=== PATIENT | female | born 1975 | race Caucasian/White ===

== ENCOUNTER 2020-03-21 19:56 | Inpatient (IN) | payer SELFPAY ==
[2020-03-21 20:08] VITALS: BP 157/91; PULSE 85; RESP 96; TEMP 38.5; O2SAT 97; BMI 21.2
[2020-03-21 20:33] VITALS: BP 174/97; PULSE 78; RESP 16; TEMP 39.3; O2SAT 97
--- NOTE | 2020-03-21 20:33 | XR_ITS ---
WS: [id number] XR chest 1V portable [id number] REASON FOR EXAM: fever FINDINGS: The heart and mediastinum are within normal limits. No active pulmonary parenchymal pleural disease is noted. Bony thorax is intact. XR/XR chest 1V portable [id number] IMPRESSION: No acute chest abnormality.
--- NOTE | 2020-03-21 20:34 | ECG_ITS ---
[facility] Test Date: 2020-03-21 Pat Name: Yoly Matthews Department: Room: Gender: Female Materials Mgmt Tech: : 1975 Requested By: Arnaldo Huerta Order Number: [id number] Reading MD: ALESSIA MCGOVERN Measurements Intervals [place] Rate: 76 P: 61 TN: 128 QRS: 63 QRSD: 90 T: 79 QT: 449 QTc: 507 Interpretive Statements SINUS RHYTHM MINIMAL ST DEPRESSION [0.025+ mV ST DEPRESSION] PROLONGED QT INTERVAL No previous ECG available for comparison Electronically Signed On 03-22-2020 19:29:22 CRACKER SPRAYER by ALESSIA MCGOVERN [id number]
--- NOTE | 2020-03-21 20:44 | ED_ITS ---
HPI - General Adult General: Chief complaint: General Medical Stated complaint: no thyroid meds/lethargic Time Seen by Provider: 03/21/20 20:26 Source: patient Mode of arrival: ambulatory Limitations: no limitations History of Present Illness: HPI narrative: 45-year-old female that states she been having generalized weakness along with fever. States she been having weakness for over a year with a being much worse recently. Patient states she has Tano's and has not taken her thyroid medicine in over a year. Patient's temperature here is 101. She denies any cough. Denies any sick contacts. Denies any worsening or improving factors. Denies any vomiting or diarrhea. Associated symptoms: Deny chest pain, dyspnea, headache(s), nausea, rash or vomiting Review of Systems Const: Reports: fever(s); Denies: chills, body aches or change in appetite Eyes: Denies: blurry vision or eye discomfort ENMT: Denies: throat pain or dental pain Card: Denies: chest pain Resp: Denies: dyspnea GI: Denies: abdominal pain, nausea, vomiting or diarrhea : Denies: dysuria Musc: Denies: neck pain or back pain Skin/Breast: Denies: rash Neuro: Reports: weakness in extremities; Denies: headache(s) Psych: Denies: depression Clive/Lymph: Denies: easy bruising All/Imm: Denies: urticaria [facility] Female Reproductive History: Date of last menstrual period: 03/21/20 Physical Exam Const: COMMON NORMALS: no acute distress, patient oriented x3 and healthy appearing HENMT: COMMON NORMALS: normocephalic and atraumatic HEAD & SCALP: normocephalic and atraumatic Eye: COMMON NORMALS: Equal, round and reactive pupils present and EOMs intact bilaterally PUPIL: Yes Equal, round and reactive pupils present Neck/C-Spine: COMMON NORMALS: full ROM and supple Chest: COMMONS NORMALS: normal inspection of the chest and normal palpation of entire chest wall Resp: COMMON NORMALS: normal respiratory effort, No retractions, No use of accessory muscles and clear to auscultation bilaterally AUSCULTATION: clear to auscultation bilaterally Cardio: COMMON NORMALS: regular rate, regular rhythm and No murmurs present (Cardio) RATE: regular rate RHYTHM: regular rhythm GI: COMMON NORMALS: Normal to inspection, nondistended, normoactive bowel sounds present, Soft to palpation, non-tender and no masses PALPATION: Yes Soft to palpation Extremity: COMMON NORMALS: normal to inspection and full ROM Neuro: COMMON NORMALS: patient oriented x3, moves all extremities and no focal motor deficits Psych: COMMON NORMALS: mental status grossly normal, Normal thought process present and cooperative THOUGHT PROCESS: Normal thought process present Skin: COMMON NORMALS: no rashes or lesions noted and no wounds GENERAL SKIN EXAM: no rashes or lesions noted Course Vital Signs: Vital signs: Vital Signs Temperature 102.7 F H 03/21/20 20:33 Pulse Rate 68 03/21/20 22:28 Respiratory Rate 16 03/21/20 22:28 Blood Pressure 128/72 03/21/20 22:28 Pulse Oximetry 97 03/21/20 22:28 MDM - General Adult MDM Narrative: Medical decision making narrative: Patient presents here with weakness likely due to her hypothyroidism. Her TSH is quite elevated in the 300s. She has been noncompliant with her Synthroid. Patient also has a fever here. Infectious source has not been noted. We will get blood cultures and follow. Her white count here is normal and her vital signs of been normal as well. She is Covid screen was negative. Spoke to hospitalist and will admit at this time. Patient has been stable while here. Lab Data: Labs: Lab Results 03/21/20 03/21/20 03/21/20 Range/Units 20:55 20:55 20:55 WBC 7.8 (4.0-10.0) 10^3/ uL RBC 4.34 (4.1-5.3) 10^6/u L Hgb 12.1 (11.5-15.3) g/dL Hct 38.6 (37.0-47.0) % MCV 88.9 (81-99) fL MCH 27.9 L (28.0-34.0) pg MCHC 31.3 (30.0-36.0) g/dL RDW 18.4 H (12.1-15.1) % Plt Count 220 (130-400) 10^3/c mm MPV 10.5 H (7.4-10.4) fL Neut % (Auto) 85.5 % Lymph % (Auto) 6.6 % [place] % (Auto) 6.0 % Eos % (Auto) 1.0 % Baso % (Auto) 0.3 % Neut # (Auto) 6.68 (1.8-7.7) 10^3/u L Lymph # (Auto) 0.5 L (0.8-4.8) 10^3/u L [place] # (Auto) 0.5 (0.2-0.9) 10^3/u L Eos # (Auto) 0.1 (0.0-0.8) 10^3/u L Baso # (Auto) 0.0 (0.0-0.1) 10^3/u L Nucleated RBC % (a uto) 0 % Nucleated RBCs # 0.0 /100WBC Sodium 135 L (136-145) mmol/L Potassium 2.8 L* (3.5-5.1) mmol/L Chloride 97 L (98-107) mmol/L Carbon Dioxide 28 (22-29) mmol/L Anion Gap 12.8 (5-19) BUN 6 (6-20) mg/dL Creatinine 1.4 H (0.5-0.9) mg/dL GFR Calculation 40.5 L (90-130) mL/min Glucose 102 (65-115) mg/dL Calculated Osmolal ity 278 L (285-295) mOsm/k g Lactate 1.6 (0.5-2.2) mmol/L Calcium 8.9 (8.5-10.5) mg/dL Total Bilirubin 0.3 (0.15-1.2) mg/dL AST 53 H (0-32) U/L ALT 30 (0-33) U/L Alkaline Phosphata se 100 (35-105) IU/L Total Protein 7.3 (6.6-8.7) g/dL Albumin 4.5 (3.5-5.2) g/dL Globulin 2.8 (1.3-4.6) g/dL TSH 356.10 H (0.27-4.20) uIU/ mL Free T4 0.10 L (0.82-1.77) ng/d L SARS-CoV-2 Ag (Rap id) (Negative) 03/21/20 Range/Units 21:30 WBC (4.0-10.0) 10^3/ uL RBC (4.1-5.3) 10^6/u L Hgb (11.5-15.3) g/dL Hct (37.0-47.0) % MCV (81-99) fL MCH (28.0-34.0) pg MCHC (30.0-36.0) g/dL RDW (12.1-15.1) % Plt Count (130-400) 10^3/c mm MPV (7.4-10.4) fL Neut % (Auto) % Lymph % (Auto) % [place] % (Auto) % Eos % (Auto) % Baso % (Auto) % Neut # (Auto) (1.8-7.7) 10^3/u L Lymph # (Auto) (0.8-4.8) 10^3/u L [place] # (Auto) (0.2-0.9) 10^3/u L Eos # (Auto) (0.0-0.8) 10^3/u L Baso # (Auto) (0.0-0.1) 10^3/u L Nucleated RBC % (a uto) % Nucleated RBCs # /100WBC Sodium (136-145) mmol/L Potassium (3.5-5.1) mmol/L Chloride (98-107) mmol/L Carbon Dioxide (22-29) mmol/L Anion Gap (5-19) BUN (6-20) mg/dL Creatinine (0.5-0.9) mg/dL GFR Calculation (90-130) mL/min Glucose (65-115) mg/dL Calculated Osmolal ity (285-295) mOsm/k g Lactate (0.5-2.2) mmol/L Calcium (8.5-10.5) mg/dL Total Bilirubin (0.15-1.2) mg/dL AST (0-32) U/L ALT (0-33) U/L Alkaline Phosphata se (35-105) IU/L Total Protein (6.6-8.7) g/dL Albumin (3.5-5.2) g/dL Globulin (1.3-4.6) g/dL TSH (0.27-4.20) uIU/ mL Free T4 (0.82-1.77) ng/d L SARS-CoV-2 Ag (Rap id) Negative (Negative) Imaging Data^: CXR: Attestation: I personally reviewed and interpreted this imaging study as follows: My impression: no acute abnormality EKG Data^: EKG 1: Attestation: I personally reviewed and interpreted this EKG as follows: EKG interpretation date: 03/21/20 EKG interpretation time: 20:45 Interpretation: nsr hr [address] or t wave abnormalities qrs 90 qtc 480 Discharge Plan Discharge Patient Disposition: Admitted As Inpatient Clinical Impression: Hypokalemia Hypothyroidism Qualifiers: 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
[2020-03-21 21:00] VITALS: BP 135/72; PULSE 68; RESP 18; O2SAT 96
[2020-03-21] MEDS: acetaminophen 325 mg Tablet 1000 MG PO (21:06)
[2020-03-21] MEDS: sodium chloride 0.9% 1,000 ML 999 ML IV (21:08)
[2020-03-21 21:17] LABS: Basophils % 0.3 %; Eosinophils # 0.1 10^3/uL (0.0-0.8); Hematocrit 38.6 % (37.0-47.0); Hemoglobin 12.1 g/dL (11.5-15.3); Lymphocytes # 0.5 10^3/uL (0.8-4.8); Lymphocytes % 6.6 %; Mean Corpuscular HGB Conc 31.3 g/dL (30.0-36.0); Mean Corpuscular Hemoglobin 27.9 pg (28.0-34.0); Mean Corpuscular Volume 88.9 fL (81-99); Mean Platelet Volume 10.5 fL (7.4-10.4); Monocytes # 0.5 10^3/uL (0.2-0.9); Neutrophils # 6.68 10^3/uL (1.8-7.7); Neutrophils % 85.5 %; Nucleated Red Blood Cells % 0 %; Platelet Count 220 10^3/cmm (130-400); Red Blood Count 4.34 10^6/uL (4.1-5.3); Red Cell Distribution Width 18.4 % (12.1-15.1); White Blood Count 7.8 10^3/uL (4.0-10.0)
[2020-03-21 21:35] LABS: Lactate (Lactic Acid level) 1.6 mmol/L (0.5-2.2)
[2020-03-21 21:46] LABS: Alanine Aminotransferase 30 U/L (0-33); Albumin Level 4.5 g/dL (3.5-5.2); Alkaline Phosphatase 100 IU/L (35-105); Anion Gap 12.8 (5-19); Aspartate Amino Transferase 53 U/L (0-32); Blood Urea Nitrogen 6 mg/dL (6-20); Calcium 8.9 mg/dL (8.5-10.5); Carbon Dioxide 28 mmol/L (22-29); Chloride 97 mmol/L (98-107); Globulin 2.8 g/dL (1.3-4.6); Glomerular Filtration Rate 40.5 mL/min (90-130); Glucose 102 mg/dL (65-115); Osmolality Calculated 278 mOsm/kg (285-295); Sodium 135 mmol/L (136-145); Total Bilirubin 0.3 mg/dL (0.15-1.2); Total Protein 7.3 g/dL (6.6-8.7)
[2020-03-21 21:49] LABS: Potassium 2.8 mmol/L (3.5-5.1)
[2020-03-21 22:28] VITALS: BP 128/72; PULSE 68; RESP 16; O2SAT 97
[2020-03-21] MEDS: potassium chloride ER 10 mEq Tablet 40 MEQ PO (22:33)
[2020-03-21 22:39] LABS: SARS Covid-2 Antigen Negative (Negative)
[2020-03-21 23:00] VITALS: BP 132/89; PULSE 66; RESP 16; O2SAT 98
[2020-03-21 23:14] LABS: Magnesium 2.1 mg/dL (1.7-2.3)
[2020-03-21 23:18] LABS: Creatine Phosphokinase 1702 U/L (26-192)
[2020-03-21 23:21] LABS: Add Urine Microscopic? YES; Bilirubin Urine Neg (Negative); Blood Urine 3+ (Negative); Glucose Urine UA Norm (Normal); Ketones Urine Negative (Negative); Leukocyte Esterase Urine Negative (Negative); Nitrate Urine Negative (Negative); Protein Urine Neg (Negative); Specific Gravity, Urine 1.005 (1.005-1.030); Urine Appearance Clear (CLEAR); Urine Color Yellow (Yellow); Urobilinogen Urine Norm (Negative); pH Urine 7 (5-7)
--- NOTE | 2020-03-21 23:43 | P.HP_ITS ---
Providers/Chief Complaint Chief Complaint: no thyroid meds/lethargic History of Present Illness Yoly Matthews is a 45 year old female with a past medical history of Tano's, has not taken her levothyroxine in over a year due to affordability and loss of availability of natural levothyroxine, no other significant medical history, who presents [facility] due to complaints of fatigue, malaise, right flank pain, fevers. Patient tells me that she has a history of Tano thyroiditis, she prefers natural supplementations, was on a natural formulation of levothyroxine, but due to affordability's and loss of availability, has not taken this medication for over a year. She has been complaining of weakness, fatigue,'s swelling, skin changes, constipation. No chest pain, no shortness of breath, is alert oriented x3, no headaches, no blurry vision, no lightheadedness, no dizziness. She also has been complaining of fevers, mild nausea, right flank pain, she thinks she has a urinary tract infection. Review of Systems Const: Reports: fever(s), fatigue and malaise; Denies: chills Eyes: Denies: change in vision or blurry vision ENMT: Denies: nasal congestion Card: Reports: edema; Denies: chest pain, palpitations or pre-syncope Resp: Denies: dyspnea, productive cough, non-productive cough or wheezing GI: Denies: abdominal pain, nausea, vomiting, hematemesis, diarrhea, constipation, hematochezia or melena : Denies: flank pain, dysuria or urinary frequency Musc: Denies: neck pain or back pain Skin/Breast: Reports: rash Neuro: Denies: headache(s), dizziness or vertigo Psych: Denies: anxiety or depression Endo: Denies: polyuria or polydipsia Medications/Allergies Home Medications Medication Instructions Recorded Confirmed Last Taken Type No Known Home Medications 03/21/20 03/21/20 Unknown History Allergies Allergy/AdvReac Type Severity Reaction Status Date / Time citalopram [From Celexa] Allergy ALGY-Rash Verified 03/21/20 20:18 Additional Medication Information Natural Synthyroid, patient unsure of the dose PFSH Acute PFSH: Medical History (Updated 03/21/20 @ 23:58 by Mitch Stone MD) History of hypothyroidism Surgical History (Updated 03/21/20 @ 23:46 by Mitch Stone MD) No pertinent past surgical history Family History (Updated 03/21/20 @ 23:46 by Mitch Stone MD) Other CAD (coronary artery disease) Social History (Updated 03/21/20 @ 23:47 by Mitch Stone MD) Smoking and tobacco status: current some day smoker Alcohol intake: never Substance/Drug Use: never Female Reproductive History: Date of last menstrual period: 03/21/20 Vitals/I&O/Wt Last Vital Signs Temp 102.7 F H 03/21/20 20:33 Pulse 68 03/21/20 22:28 Resp 16 03/21/20 22:28 BP 128/72 03/21/20 22:28 Pulse Ox 97 03/21/20 22:28 Weight last 48 hrs Weight 63.503 kg Physical Exam Const: COMMON NORMALS: no acute distress and patient oriented x3 GENERAL APPEARANCE: cooperative and comfortable HENMT: COMMON NORMALS: normocephalic HEAD & SCALP: normocephalic Eye: COMMON NORMALS: Equal, round and reactive pupils present and EOMs intact bilaterally PUPIL: Yes Equal, round and reactive pupils present OTHER: Has periorbital edema Neck/C-Spine: COMMON NORMALS: full ROM, no lymphadenopathy, no JVD and Thyroid normal THYROID: Thyroid normal Lymph: LYMPHATIC: no lymphadenopathy noted Resp: COMMON NORMALS: normal respiratory effort, No retractions, No use of accessory muscles and clear to auscultation bilaterally AUSCULTATION: clear to auscultation bilaterally Cardio: COMMON NORMALS: no JVD, regular rate, regular rhythm, S1 normal heart sound present, S2 normal heart sound present, No gallops present (Cardio), No clicks present (Cardio) and No murmurs present (Cardio) RATE: regular rate RHYTHM: regular rhythm HEART SOUNDS: S1 normal heart sound present and S2 normal heart sound present GI: COMMON NORMALS: Normal to inspection, nondistended, normoactive bowel sounds present, Soft to palpation, non-tender and No hepatosplenomegaly present PALPATION: Yes Soft to palpation and Yes No hepatosplenomegaly present Back/Pelvis: GENERAL BACK: Yes CVA tenderness CVA tenderness: right Extremity: COMMON NORMALS: normal to inspection, full ROM and no pedal edema Neuro: COMMON NORMALS: patient oriented x3, CN's II-XII intact bilaterally, moves all extremities and no focal motor deficits Psych: COMMON NORMALS: mental status grossly normal, Normal thought process present and cooperative THOUGHT PROCESS: Normal thought process present Data : 03/21/20 20:55 03/21/20 20:55 Micro: Microbiology 03/21/20 20:55 Blood Culture - Preliminary Blood SPECIMEN COLLECTED 03/21/20 20:55 Blood Culture - Preliminary Blood SPECIMEN COLLECTED A&P Assessment and plan (1) Pyelonephritis of right kidney: Fevers, right flank pain, highly suspicious of right pyelonephritis of the kidney, tells me that she has recurrent UTIs and history is a pyelonephritis -Rapid Covid negative -Order CT scan of the abdomen pelvis to rule out obstructive uropathy -Start Zosyn -Follow blood cultures Status: Acute (2) Hypokalemia: -Received replacement, monitor levels Status: Acute (3) Fever: Status: Acute Qualifiers: Fever type: unspecified Qualified Code(s): R50.9 - Fever, unspecified (4) Hypothyroidism: Status: Acute Qualifiers: 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 Qualified Code(s): E03.8 - Other specified hypothyroidism; E06.3 - Autoimmune thyroiditis (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 daily -Daily TSH, free T3, free T4 -Telemetry monitoring -Monitor CK, creatinine, potassium, EKG Status: Acute (6) BONNIE (acute kidney injury): -Creatinine 1.4, will start IV hydration Status: Acute (7) QT prolongation: 507 ms, potassium low at 2.8, repleted, magnesium within normal limits, likely associated with myxedema coma, daily EKGs, monitor QT Status: Acute (8) Rhabdomyolysis: -1702, CPK, likely secondary to myxedema, monitor levels IV hydration, monitor creatinine, monitor urine output Status: Acute Attestations Medical Necessity Statement*: Patient requires hospitalization, inpatient, greater than 2 midnights for pyelonephritis right kidney, myxedema coma Coding Level of Care Code Acute Machine Operator Cane Cutter for g Fwd Diagnoses Pyelonephritis of right kidney N12 Hypokalemia E87.6 Fever R50.9 Fever type: unspecified Hypothyroidism E03.8; E06.3 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
[2020-03-21 23:54] LABS: Add Urine Culture? No; Bacteria Urine TRACE /hpf; RBC Urine 0-4 /hpf (0-2); Squamous Epithelial Cell Urine 0-4 /hpf (0-5)
[2020-03-22] VITALS (7 sets, daily range): BP systolic 120–162; BP diastolic 72–86; PULSE 59–94; RESP 16–18; TEMP 37.2–39.4; O2SAT 96–99
[2020-03-22 00:22] LABS: C Reactive Protein 7.3 mg/L (0.0-4.9)
[2020-03-22 00:31] LABS: HCG Qualitative Urine. Negative (Negative)
[2020-03-22] MEDS: levothyroxine 100 mcg SDV 150 MCG IVP (00:52)
[2020-03-22 02:08] LABS: Influenza A by IFA Negative (Negative); Influenza B by IFA Negative (Negative)
[2020-03-22] MEDS: piperacillin-tazobactam 3.375 GM in sodium chloride 0.9% (plus) 50 ML IV ×2 (03:33→11:38)
[2020-03-22] MEDS: sodium chloride 0.9% 1,000 ML 100 ML IV (03:33)
[2020-03-22] MEDS: liothyronine 5 mcg Tablet PO (03:34)
[2020-03-22] MEDS: enoxaparin 40 mg/0.4 mL Syringe SUBCUT (03:36)
[2020-03-22 03:53] LABS: Basophils % 0.3 %; Eosinophils % 0.2 %; Hematocrit 42.8 % (37.0-47.0); Hemoglobin 13.7 g/dL (11.5-15.3); Lymphocytes # 0.7 10^3/uL (0.8-4.8); Lymphocytes % 7.3 %; Mean Corpuscular Hemoglobin 27.8 pg (28.0-34.0); Mean Platelet Volume 10.1 fL (7.4-10.4); Monocytes # 0.4 10^3/uL (0.2-0.9); Monocytes % 3.8 %; Neutrophils % 87.9 %; Nucleated Red Blood Cells % 0 %; Platelet Count 225 10^3/cmm (130-400); Red Blood Count 4.92 10^6/uL (4.1-5.3); Red Cell Distribution Width 18.3 % (12.1-15.1); White Blood Count 9.7 10^3/uL (4.0-10.0)
[2020-03-22 04:17] LABS: Lactic Sepsis W/Reflex 1.4 mmol/L (0.5-2.2)
[2020-03-22 04:18] LABS: Alanine Aminotransferase 36 U/L (0-33); Albumin Level 4.4 g/dL (3.5-5.2); Alkaline Phosphatase 111 IU/L (35-105); Anion Gap 13.4 (5-19); Aspartate Amino Transferase 61 U/L (0-32); Blood Urea Nitrogen 6 mg/dL (6-20); Calcium 8.8 mg/dL (8.5-10.5); Carbon Dioxide 26 mmol/L (22-29); Chloride 104 mmol/L (98-107); Glomerular Filtration Rate 48.4 mL/min (90-130); Glucose 112 mg/dL (65-115); Magnesium 2.3 mg/dL (1.7-2.3); Osmolality Calculated 288 mOsm/kg (285-295); Potassium 3.4 mmol/L (3.5-5.1); Sodium 140 mmol/L (136-145); Total Bilirubin 0.4 mg/dL (0.15-1.2); Total Protein 7.4 g/dL (6.6-8.7)
[2020-03-22 04:19] LABS: INR 0.95 (0.8-1.2); Phosphorus 2.7 mg/dL (2.5-4.5)
[2020-03-22 04:25] LABS: T3 Free 0.4 PG/ML (2.0-4.4)
[2020-03-22 04:26] LABS: Cortisol Random 18.66 ug/mL (2.47-19.5)
[2020-03-22 05:15] LABS: Creatine Phosphokinase 1506 U/L (26-192)
[2020-03-22] MEDS: pantoprazole DR 40 mg Tablet PO (08:30)
[2020-03-22] MEDS: acetaminophen 325 mg Tablet 650 MG PO (13:41)
[2020-03-22 14:27] LABS: Erythrocyte Sedimentation Rate 17 mm/hr (0-15)
--- NOTE | 2020-03-22 15:37 | PC.RESP ---
Smoking Cessation information sent to patient.
--- NOTE | 2020-03-22 15:51 | PM.PN ---
Subjective Subjective: Interval history: Overnight labs and H&P reviewed. Continues to be febrile to 102.9 Fahrenheit. States that her back pain and abdominal pain is much improved at this time. Given additional dose of 100 mg of IV levothyroxine today. Medications: Reviewed: Yes Vitals/I&O/Wt Last Vital Signs Temp 102.9 F H 03/22/20 12:00 Pulse 78 03/22/20 12:00 Resp 18 03/22/20 12:00 BP 162/78 03/22/20 12:00 Pulse Ox 96 03/22/20 12:00 03/22/20 03/22/20 03/22/20 06:59 14:59 22:59 Intake Total 630 / 630 Output Total 600 / 600 Balance Weight last 48 hrs Weight 63.503 kg Physical Exam Narrative: EXAM NARRATIVE: GEN: Awake, alert and oriented, no acute distress CVS: S1S2 N RS: CTA B/L Abd: Soft, nt/nd , bs+ FACILITIES MAINTENANCE ASSISTANT: no focal neuro deficits Data : 03/22/20 03:35 03/22/20 03:35 Micro: Microbiology 03/22/20 03:30 Blood Culture - Preliminary Blood SPECIMEN COLLECTED 03/22/20 03:30 Blood Culture - Preliminary Blood SPECIMEN COLLECTED 03/21/20 20:55 Blood Culture - Preliminary Blood SPECIMEN COLLECTED 03/21/20 20:55 Blood Culture - Preliminary Blood SPECIMEN COLLECTED A&P Assessment and plan (1) Pyelonephritis of right kidney: Fevers, right flank pain, highly suspicious of right pyelonephritis of the kidney CT of the abdomen pelvis ordered as an urgent study overnight however this has not been performed yet -Rapid Covid negative -Continue Zosyn empirically -Follow blood cultures, negative thus far, repeat sent today Status: Acute (2) Hypokalemia: check with am labs Status: Acute (3) Fever: Status: Acute Qualifiers: Fever type: unspecified Qualified Code(s): R50.9 - Fever, unspecified (4) Hypothyroidism: Status: Acute Qualifiers: 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 -TSH 356, free T4 0.1, CK 1702, -Has periorbital edema, is a bit confused at times, quite drowsy -Has mild features of early developing myxedema coma -Continue levothyroxine 100 mcg IV, check TSH T3 and T4 daily with labs -Hold T3 for now -Telemetry monitoring -Monitor CK, creatinine, potassium, EKG Status: Acute Attestations Medical Necessity Statement*: Fever, source under evaluation, possible pyelonephritis needing IV antibiotics, rhabdomyolysis needing IV hydration. 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
--- NOTE | 2020-03-22 16:51 | PC.NURSE ---
upon rounding pt stated that her family was on the floor to visit. due to being a rule out for covid pt was not allowed visitors, this upset pt. pt then requested to leave the facility against medical advice. pt had been upset throughout the day and had mentioned leaving when the physician rounded the provider explained what that meant to leave before treatment could be finished. this nurse also explained about risks in leaving. pt stated she would seek treatment from her primary care provider.pt then signed ama form. pt was then escorted out with this nurse and security at 1646 and picked up by family. this nurse notified provider of pt leaving ama.
[2020-03-22 17:09] LABS: Coronavirus Lab Test PTC Negative
== END 2020-03-22 16:45 | disposition left against medical advice (07) | DRG 689 ==
LOC: ER 22:37 → MEDSURG 03-22 00:29
PROVIDERS: Admitting Provider Family Medicine; Emergency Provider Emergency Medicine; Visit Provider Student in an Organized Health Care Education/Training Program
DX: N12 Tubulo-interstitial nephritis, not specified as acute or chronic (principal); E03.5 Myxedema coma; M62.82 Rhabdomyolysis; E06.3 Autoimmune thyroiditis; F17.210 Nicotine dependence, cigarettes, uncomplicated; E87.6 Hypokalemia; N17.9 Acute kidney failure, unspecified; I45.81 Long QT syndrome; Z53.29 Procedure and treatment not carried out because of patient's decision for other reasons
CPT/HCPCS: 12345; 36415; 71045; 80053; 81001; 81025; 82533; 82550; 83605; 83735; 84100; 84145; 84439; 84443; 84481; 85025; 85610; 85651; 86140; 87040; 87077; 87186; 87205; 87426; 87635; 87804; 93005; 96372; 99284; J1650; J2543; J3490; J7030

== ENCOUNTER 2020-03-25 20:42 | Emergency (ER) | payer SELFPAY ==
[2020-03-25 20:54] VITALS: BP 114/73; PULSE 82; RESP 18; TEMP 36.9; O2SAT 97; BMI 21.2
--- NOTE | 2020-03-25 21:38 | ED_ITS ---
Documented by User: RAS Dumont 03/26/20 17:57 HPI - Extremity Problem General: Chief complaint: Extremity Problem,Nontraumatic Stated complaint: WEAKNESS Time Seen by Provider: 03/25/20 21:02 History of Present Illness: HPI Narrative: Patient is a 45-year-old female comes to the ED with fatigue. She was seen here on Mar.21 for same complaint and admitted to the hospital. She was diagnosed with myxedema coma and pyelonep hritis. Patient says she left AMA because she was upset about how she was treated while in the hospital. She has not been taking any thyroid meds since discharge and is completely out. Patient says that she has not been taking her thyroid medication for almost a year previous to onset of symptoms. She has a scheduled appointment in a couple days with PCP. Associated symptoms: Deny chest pain, fever(s) or rash Review of Systems Const: Reports: fatigue; Denies: fever(s) or chills Eyes: Denies: change in vision or eye discomfort ENMT: Denies: throat pain, odynophagia, nasal discharge or nasal congestion Card: Denies: chest pain, palpitations, edema, swelling of feet/ankles, dyspnea on exertion or orthopnea Resp: Denies: dyspnea, productive cough or non-productive cough GI: Denies: abdominal pain, nausea, vomiting, diarrhea, constipation or hematochezia : Denies: flank pain, dysuria or hematuria Musc: Reports: joint pain (Left knee pain- no injury or accident); Denies: neck pain, back pain or extremity swelling Skin/Breast: Denies: rash or new lesions Neuro: Denies: headache(s), numbness in extremities or weakness in extremities PFS ED PFSH: Medical History History of hypothyroidism Surgical History No pertinent past surgical history Family History Other CAD (coronary artery disease) Social History Smoking and tobacco status: current some day smoker Alcohol intake: never Female Reproductive History: Date of last menstrual period: 03/21/20 Physical Exam Const: COMMON NORMALS: patient oriented x3 and alert GENERAL APPEARANCE: cooperative, comfortable and lethargic ORIENTATION/CONSCIOUSNESS: Yes lethargic HENMT: COMMON NORMALS: normocephalic HEAD & SCALP: normocephalic MOUTH: Normal oral and palatal mucosa present THROAT: posterior oropharynx normal and uvula midline Eye: COMMON NORMALS: Equal, round and reactive pupils present PUPIL: Yes Equal, round and reactive pupils present Neck/C-Spine: COMMON NORMALS: supple GENERAL: Yes normal visual inspection Resp: COMMON NORMALS: normal respiratory effort, No retractions, No use of accessory muscles and clear to auscultation bilaterally EFFORT & INSPECTION: Yes able to speak in complete sentences, No tachypneic, No respiratory distress and No labored AUSCULTATION: clear to auscultation bilaterally Cardio: COMMON NORMALS: regular rate, regular rhythm, S1 normal heart sound present, S2 normal heart sound present, No gallops present (Cardio), No clicks present (Cardio) and Peripheral pulses 2+ throughout RATE: regular rate RHYTHM: regular rhythm HEART SOUNDS: S1 normal heart sound present, S2 normal heart sound present and Murmur heart sound present systolic Location: axilla Intensity: I/ Characteristics: blowing Timing: early PERIPHERAL PULSES: Peripheral pulses 2+ throughout GI: COMMON NORMALS: Normal to inspection, nondistended, normoactive bowel sounds present, Soft to palpation, non-tender and no masses PALPATION: Yes Soft to palpation : COMMON NORMALS: Yes no CVA tenderness BLADDER/KIDNEY EXAM: Yes no CVA tenderness Back/Pelvis: COMMON NORMALS: no CVA tenderness Extremity: COMMON NORMALS: no pedal edema Neuro: COMMON NORMALS: patient oriented x3 and moves all extremities SENSORIUM/ORIENTATION: Yes alert and Yes lethargic Skin: GENERAL SKIN EXAM: dry skin Course Vital Signs: Vital signs: Vital Signs Temperature 98.5 F 03/25/20 20:54 Pulse Rate 91 03/26/20 02:38 Respiratory Rate 14 03/26/20 02:38 Blood Pressure 110/66 03/26/20 02:38 Pulse Oximetry 92 03/26/20 02:38 MDM - Extremity (Nontraumatic) MDM Narrative: Medical decision making narrative: I talked with patient about labs and the seriousness of her condition with extremely low thyroid levels. I told her that we would like to have her admitted. Patient is alert and oriented and able to make her own decisions. She states she does not want to be admitted and would like to go home. Patient says because her cannot be with her full-time while in the hospital and is restricted to visiting hours she does not want to be admitted. I stressed the seriousness and severity of patient's condition and she understood, but says she would like to go home and will follow up with her primary care doctor at the next scheduled appointment in a little less than a week. Patient says she will sign an AMA form. Before discharge, patient got 240 mg of [place]al[place] Thyroid and was sent home with a prescription for [place] Thyroid. I told her to return to the ED immediately if she changes her mind or symptoms worsen. Patient understood and agreed with plan and signed AMA form. Lab Data: Attestation: I reviewed the patient's lab results. Labs: Lab Results 03/25/20 03/25/20 03/25/20 Range/Units 01:33 21:05 21:05 WBC 9.8 (4.0-10.0) 10^3/ uL RBC 3.97 L (4.1-5.3) 10^6/u L Hgb 10.9 L (11.5-15.3) g/dL Hct 33.9 L (37.0-47.0) % MCV 85.4 (81-99) fL MCH 27.5 L (28.0-34.0) pg MCHC 32.2 (30.0-36.0) g/dL RDW 17.8 H (12.1-15.1) % Plt Count 111 L (130-400) 10^3/c mm MPV 11.0 H (7.4-10.4) fL Neut % (Auto) 87.9 % Lymph % (Auto) 5.6 % [place] % (Auto) 5.7 % Eos % (Auto) 0.0 % Baso % (Auto) 0.4 % Neut # (Auto) 8.61 H (1.8-7.7) 10^3/u L Lymph # (Auto) 0.6 L (0.8-4.8) 10^3/u L [place] # (Auto) 0.6 (0.2-0.9) 10^3/u L Eos # (Auto) 0.0 (0.0-0.8) 10^3/u L Baso # (Auto) 0.0 (0.0-0.1) 10^3/u L Nucleated RBC % (a uto) 0 % Nucleated RBCs # 0.0 /100WBC Sodium 130 L (136-145) mmol/L Potassium 2.9 L (3.5-5.1) mmol/L Chloride 94 L (98-107) mmol/L Carbon Dioxide 26 (22-29) mmol/L Anion Gap 12.9 (5-19) BUN 8 (6-20) mg/dL Creatinine 1.2 H (0.5-0.9) mg/dL GFR Calculation 48.4 L (90-130) mL/min Glucose 109 (65-115) mg/dL Calculated Osmolal ity 269 L (285-295) mOsm/k g Lactic Acid (0.5-2.2) mmol/L Calcium 9.0 (8.5-10.5) mg/dL Total Bilirubin 0.7 (0.15-1.2) mg/dL AST 73 H (0-32) U/L ALT 57 H (0-33) U/L Alkaline Phosphata se 154 H (35-105) IU/L Creatine Kinase 1148 H* (26-192) U/L Troponin T Baselin e (0-10) ng/L Troponin T 120 Min [place] 59.40 H (0-10) ng/L Delta Troponin T Not Reportable C-Reactive Protein 200.8 H (0.0-4.9) mg/L Total Protein 6.9 (6.6-8.7) g/dL Albumin 3.6 (3.5-5.2) g/dL Globulin 3.3 (1.3-4.6) g/dL TSH 153.00 H (0.27-4.20) uIU/ mL Free T4 0.21 L (0.82-1.77) ng/d L Free T3 0.5 L (2.0-4.4) PG/ML Urine Color (Yellow) Urine Appearance (CLEAR) Urine pH (5-7) Ur Specific Gravit y (1.005-1.030) Urine Protein (Negative) Urine Glucose (UA) (Normal) Urine Ketones (Negative) Urine Blood (Negative) Urine Nitrate (Negative) Urine Bilirubin (Negative) Urine Urobilinogen (Negative) mg/dL Ur Leukocyte Marry ase (Negative) Urine RBC (0-2) /hpf Urine WBC (0-5) /hpf Ur Squamous Epith Cells (0-5) /hpf Amorphous Sediment Urine Bacteria (NONE) /hpf 03/25/20 03/25/20 03/26/20 Range/Units 23:00 23:00 00:21 WBC (4.0-10.0) 10^3/ uL RBC (4.1-5.3) 10^6/u L Hgb (11.5-15.3) g/dL Hct (37.0-47.0) % MCV (81-99) fL MCH (28.0-34.0) pg MCHC (30.0-36.0) g/dL RDW (12.1-15.1) % Plt Count (130-400) 10^3/c mm MPV (7.4-10.4) fL Neut % (Auto) % Lymph % (Auto) % [place] % (Auto) % Eos % (Auto) % Baso % (Auto) % Neut # (Auto) (1.8-7.7) 10^3/u L Lymph # (Auto) (0.8-4.8) 10^3/u L [place] # (Auto) (0.2-0.9) 10^3/u L Eos # (Auto) (0.0-0.8) 10^3/u L Baso # (Auto) (0.0-0.1) 10^3/u L Nucleated RBC % (a uto) % Nucleated RBCs # /100WBC Sodium (136-145) mmol/L Potassium (3.5-5.1) mmol/L Chloride (98-107) mmol/L Carbon Dioxide (22-29) mmol/L Anion Gap (5-19) BUN (6-20) mg/dL Creatinine (0.5-0.9) mg/dL GFR Calculation (90-130) mL/min Glucose (65-115) mg/dL Calculated Osmolal ity (285-295) mOsm/k g Lactic Acid 1.1 (0.5-2.2) mmol/L Calcium (8.5-10.5) mg/dL Total Bilirubin (0.15-1.2) mg/dL AST (0-32) U/L ALT (0-33) U/L Alkaline Phosphata se (35-105) IU/L Creatine Kinase (26-192) U/L Troponin T Baselin e 60 H (0-10) ng/L Troponin T 120 Min [place] (0-10) ng/L Delta Troponin T C-Reactive Protein (0.0-4.9) mg/L Total Protein (6.6-8.7) g/dL Albumin (3.5-5.2) g/dL Globulin (1.3-4.6) g/dL TSH (0.27-4.20) uIU/ mL Free T4 (0.82-1.77) ng/d L Free T3 (2.0-4.4) PG/ML Urine Color Yellow (Yellow) Urine Appearance Clear (CLEAR) Urine pH 6.5 (5-7) Ur Specific Gravit y 1.005 (1.005-1.030) Urine Protein Neg (Negative) Urine Glucose (UA) Norm (Normal) Urine Ketones Negative (Negative) Urine Blood Neg (Negative) Urine Nitrate Negative (Negative) Urine Bilirubin Neg (Negative) Urine Urobilinogen Norm (Negative) mg/dL Ur Leukocyte Marry ase Negative (Negative) Urine RBC 0-4 H (0-2) /hpf Urine WBC 0-4 H (0-5) /hpf Ur Squamous Epith Cells 5-10 H (0-5) /hpf Amorphous Sediment Not Reportable Urine Bacteria Trace (NONE) /hpf Imaging Data^: CXR: My impression: No chest x-ray was performed on patient. The above chest x-ray findings were added to note by mistake and are not part of patients medical record. EKG Data^: EKG 1: Attestation: I personally reviewed and interpreted this EKG as follows: EKG interpretation date: 03/26/20 Interpretation: Normal sinus rhythm with occasional supraventricular premature complexes, 80 bpm, no ST segment elevation or depression seen. Discharge Plan Discharge Patient Disposition: Home Clinical Impression: Hypothyroidism, Myxedema coma Condition: Stable Prescriptions: New [place] Thyroid 240 mg tablet 240 mg PO DAILY Qty: 30 RF: 0 No Action No Known Home Medications RF: 0 Discharge Orders: Discharge Order (Routine); Ordered 03/26/20 Ordered By: Silver Morales Discharge Diet: Regular Discharge Activity: Increase activity as tolerated Patient Instructions: Hypothyroidism (ED), Myxedema Coma (GEN) Activity Restrictions/Additional Instructions: Follow-up with medical provider at your previously scheduled appointment in the next couple days. Take medications as prescribed. Return to the ER or your medical provider if condition worsens. Please read and understand discharge instructions. If any questions, please ask. Coding Level of Care Code ED Securities Analyst for Chg Fwd Exam Comprehensive Documented by User: Emily Mejia 03/25/20 22:52 HPI - Extremity Problem General: Chief complaint: Extremity Problem,Nontraumatic Stated complaint: WEAKNESS Time Seen by Provider: 03/25/20 21:02 [facility] ED PFSH: Medical History History of hypothyroidism Surgical History No pertinent past surgical history Family History Other CAD (coronary artery disease) Social History Smoking and tobacco status: current some day smoker Alcohol intake: never Course Vital Signs: Vital signs: Vital Signs Temperature 98.5 F 03/25/20 20:54 Pulse Rate 91 03/26/20 02:38 Respiratory Rate 14 03/26/20 02:38 Blood Pressure 110/66 03/26/20 02:38 Pulse Oximetry 92 03/26/20 02:38 MDM - Extremity (Nontraumatic) Lab Data: Attestation: I reviewed the patient's lab results. Labs: Lab Results 03/25/20 03/25/20 03/25/20 Range/Units 01:33 21:05 21:05 WBC 9.8 (4.0-10.0) 10^3/ uL RBC 3.97 L (4.1-5.3) 10^6/u L Hgb 10.9 L (11.5-15.3) g/dL Hct 33.9 L (37.0-47.0) % MCV 85.4 (81-99) fL MCH 27.5 L (28.0-34.0) pg MCHC 32.2 (30.0-36.0) g/dL RDW 17.8 H (12.1-15.1) % Plt Count 111 L (130-400) 10^3/c mm MPV 11.0 H (7.4-10.4) fL Neut % (Auto) 87.9 % Lymph % (Auto) 5.6 % [place] % (Auto) 5.7 % Eos % (Auto) 0.0 % Baso % (Auto) 0.4 % Neut # (Auto) 8.61 H (1.8-7.7) 10^3/u L Lymph # (Auto) 0.6 L (0.8-4.8) 10^3/u L [place] # (Auto) 0.6 (0.2-0.9) 10^3/u L Eos # (Auto) 0.0 (0.0-0.8) 10^3/u L Baso # (Auto) 0.0 (0.0-0.1) 10^3/u L Nucleated RBC % (a uto) 0 % Nucleated RBCs # 0.0 /100WBC Sodium 130 L (136-145) mmol/L Potassium 2.9 L (3.5-5.1) mmol/L Chloride 94 L (98-107) mmol/L Carbon Dioxide 26 (22-29) mmol/L Anion Gap 12.9 (5-19) BUN 8 (6-20) mg/dL Creatinine 1.2 H (0.5-0.9) mg/dL GFR Calculation 48.4 L (90-130) mL/min Glucose 109 (65-115) mg/dL Calculated Osmolal ity 269 L (285-295) mOsm/k g Lactic Acid (0.5-2.2) mmol/L Calcium 9.0 (8.5-10.5) mg/dL Total Bilirubin 0.7 (0.15-1.2) mg/dL AST 73 H (0-32) U/L ALT 57 H (0-33) U/L Alkaline Phosphata se 154 H (35-105) IU/L Creatine Kinase 1148 H* (26-192) U/L Troponin T Baselin e (0-10) ng/L Troponin T 120 Min [place] 59.40 H (0-10) ng/L Delta Troponin T Not Reportable C-Reactive Protein 200.8 H (0.0-4.9) mg/L Total Protein 6.9 (6.6-8.7) g/dL Albumin 3.6 (3.5-5.2) g/dL Globulin 3.3 (1.3-4.6) g/dL TSH 153.00 H (0.27-4.20) uIU/ mL Free T4 0.21 L (0.82-1.77) ng/d L Free T3 0.5 L (2.0-4.4) PG/ML Urine Color (Yellow) Urine Appearance (CLEAR) Urine pH (5-7) Ur Specific Gravit y (1.005-1.030) Urine Protein (Negative) Urine Glucose (UA) (Normal) Urine Ketones (Negative) Urine Blood (Negative) Urine Nitrate (Negative) Urine Bilirubin (Negative) Urine Urobilinogen (Negative) mg/dL Ur Leukocyte Marry ase (Negative) Urine RBC (0-2) /hpf Urine WBC (0-5) /hpf Ur Squamous Epith Cells (0-5) /hpf Amorphous Sediment Urine Bacteria (NONE) /hpf 03/25/20 03/25/20 03/26/20 Range/Units 23:00 23:00 00:21 WBC (4.0-10.0) 10^3/ uL RBC (4.1-5.3) 10^6/u L Hgb (11.5-15.3) g/dL Hct (37.0-47.0) % MCV (81-99) fL MCH (28.0-34.0) pg MCHC (30.0-36.0) g/dL RDW (12.1-15.1) % Plt Count (130-400) 10^3/c mm MPV (7.4-10.4) fL Neut % (Auto) % Lymph % (Auto) % [place] % (Auto) % Eos % (Auto) % Baso % (Auto) % Neut # (Auto) (1.8-7.7) 10^3/u L Lymph # (Auto) (0.8-4.8) 10^3/u L [place] # (Auto) (0.2-0.9) 10^3/u L Eos # (Auto) (0.0-0.8) 10^3/u L Baso # (Auto) (0.0-0.1) 10^3/u L Nucleated RBC % (a uto) % Nucleated RBCs # /100WBC Sodium (136-145) mmol/L Potassium (3.5-5.1) mmol/L Chloride (98-107) mmol/L Carbon Dioxide (22-29) mmol/L Anion Gap (5-19) BUN (6-20) mg/dL Creatinine (0.5-0.9) mg/dL GFR Calculation (90-130) mL/min Glucose (65-115) mg/dL Calculated Osmolal ity (285-295) mOsm/k g Lactic Acid 1.1 (0.5-2.2) mmol/L Calcium (8.5-10.5) mg/dL Total Bilirubin (0.15-1.2) mg/dL AST (0-32) U/L ALT (0-33) U/L Alkaline Phosphata se (35-105) IU/L Creatine Kinase (26-192) U/L Troponin T Baselin e 60 H (0-10) ng/L Troponin T 120 Min [place] (0-10) ng/L Delta Troponin T C-Reactive Protein (0.0-4.9) mg/L Total Protein (6.6-8.7) g/dL Albumin (3.5-5.2) g/dL Globulin (1.3-4.6) g/dL TSH (0.27-4.20) uIU/ mL Free T4 (0.82-1.77) ng/d L Free T3 (2.0-4.4) PG/ML Urine Color Yellow (Yellow) Urine Appearance Clear (CLEAR) Urine pH 6.5 (5-7) Ur Specific Gravit y 1.005 (1.005-1.030) Urine Protein Neg (Negative) Urine Glucose (UA) Norm (Normal) Urine Ketones Negative (Negative) Urine Blood Neg (Negative) Urine Nitrate Negative (Negative) Urine Bilirubin Neg (Negative) Urine Urobilinogen Norm (Negative) mg/dL Ur Leukocyte Marry ase Negative (Negative) Urine RBC 0-4 H (0-2) /hpf Urine WBC 0-4 H (0-5) /hpf Ur Squamous Epith Cells 5-10 H (0-5) /hpf Amorphous Sediment Not Reportable Urine Bacteria Trace (NONE) /hpf Imaging Data^: CXR: Attestation: I personally reviewed and interpreted this imaging study as follows: My impression: Possible bilateral upper lobe infiltrates Discharge Plan Discharge Patient Disposition: Home Clinical Impression: Hypothyroidism, Myxedema coma Condition: Stable Prescriptions: New [place] Thyroid 240 mg tablet 240 mg PO DAILY Qty: 30 RF: 0 No Action No Known Home Medications RF: 0 Discharge Orders: Discharge Order (Routine); Ordered 03/26/20 Ordered By: Silver Morales Discharge Diet: Regular Discharge Activity: Increase activity as tolerated Patient Instructions: Hypothyroidism (ED), Myxedema Coma (GEN) Activity Restrictions/Additional Instructions: Follow-up with medical provider at your previously scheduled appointment in the next couple days. Take medications as prescribed. Return to the ER or your medical provider if condition worsens. Please read and understand discharge instructions. If any questions, please ask. Coding Level of Care Code ED Securities Analyst for Markus Fwd Exam Comprehensive
--- NOTE | 2020-03-25 21:41 | ECG_ITS ---
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 Measurements Intervals Clarinda Rate: 80 P: 83 OK: 146 QRS: 112 QRSD: 94 T: 99 QT: 428 QTc: 494 Interpretive Statements SINUS RHYTHM WITH OCCASIONAL SUPRAVENTRICULAR PREMATURE COMPLEXES POSSIBLE RIGHT VENTRICULAR HYPERTROPHY [SOME/ALL OF: PROMINENT R IN V1, LATE TRANSITION, RAD, ALLYSON, SSS] Compared to ECG 03/21/2020 20:45:26 Atrial abnormality now present ST (T wave) deviation no longer present Prolonged QT interval no longer present Electronically Signed On 03-26-2020 19:14:50 EXTENSION COURSE COORDINATOR by Ar Monsivais M.D. [id number]
[2020-03-25 21:51] LABS: Basophils % 0.4 %; Hematocrit 33.9 % (37.0-47.0); Hemoglobin 10.9 g/dL (11.5-15.3); Lymphocytes # 0.6 10^3/uL (0.8-4.8); Lymphocytes % 5.6 %; Mean Corpuscular HGB Conc 32.2 g/dL (30.0-36.0); Mean Corpuscular Hemoglobin 27.5 pg (28.0-34.0); Mean Corpuscular Volume 85.4 fL (81-99); Monocytes # 0.6 10^3/uL (0.2-0.9); Monocytes % 5.7 %; Neutrophils # 8.61 10^3/uL (1.8-7.7); Neutrophils % 87.9 %; Nucleated Red Blood Cells % 0 %; Platelet Count 111 10^3/cmm (130-400); Red Blood Count 3.97 10^6/uL (4.1-5.3); Red Cell Distribution Width 17.8 % (12.1-15.1); White Blood Count 9.8 10^3/uL (4.0-10.0)
[2020-03-25 22:01] LABS: Alanine Aminotransferase 57 U/L (0-33); Albumin Level 3.6 g/dL (3.5-5.2); Alkaline Phosphatase 154 IU/L (35-105); Anion Gap 12.9 (5-19); Aspartate Amino Transferase 73 U/L (0-32); Blood Urea Nitrogen 8 mg/dL (6-20); C Reactive Protein 200.8 mg/L (0.0-4.9); Carbon Dioxide 26 mmol/L (22-29); Chloride 94 mmol/L (98-107); Globulin 3.3 g/dL (1.3-4.6); Glomerular Filtration Rate 48.4 mL/min (90-130); Glucose 109 mg/dL (65-115); Osmolality Calculated 269 mOsm/kg (285-295); Sodium 130 mmol/L (136-145); Total Bilirubin 0.7 mg/dL (0.15-1.2); Total Protein 6.9 g/dL (6.6-8.7)
[2020-03-25 22:06] LABS: Creatine Phosphokinase 1148 U/L (26-192); Potassium 2.9 mmol/L (3.5-5.1)
[2020-03-25] MEDS: potassium chloride ER 10 mEq Tablet 20 MEQ PO (22:19)
[2020-03-25 22:20] VITALS: PULSE 82
[2020-03-25 22:24] VITALS: BP 121/73; PULSE 82; RESP 16; O2SAT 94
--- NOTE | 2020-03-25 22:27 | PC.NURSE ---
patient refused IV insertion and blood draw by nurse, patient states she will not let herself be tied down and does not want one at this time.
[2020-03-25 22:33] LABS: Free T4 Free Thyroxine 0.21 ng/dL (0.82-1.77); T3 Free 0.5 PG/ML (2.0-4.4)
[2020-03-25 23:23] LABS: Lactic Sepsis W/Reflex 1.1 mmol/L (0.5-2.2)
[2020-03-25 23:25] LABS: Troponin(5th) Baseline 60 ng/L (0-10)
--- NOTE | 2020-03-26 00:08 | PC.NURSE ---
taken to bathroom in wheelchair by tech
[2020-03-26 00:15] VITALS: BP 121/73
[2020-03-26 01:09] LABS: Bilirubin Urine Neg (Negative); Blood Urine Neg (Negative); Glucose Urine UA Norm (Normal); Ketones Urine Negative (Negative); Leukocyte Esterase Urine Negative (Negative); Nitrate Urine Negative (Negative); Protein Urine Neg (Negative); Specific Gravity, Urine 1.005 (1.005-1.030); Urine Appearance Clear (CLEAR); Urine Color Yellow (Yellow); Urobilinogen Urine Norm (Negative); pH Urine 6.5 (5-7)
[2020-03-26 01:11] LABS: Add Urine Culture? No; Bacteria Urine TRACE /hpf; RBC Urine 0-4 /hpf (0-2); WBC Urine 0-4 /hpf (0-5)
[2020-03-26] MEDS: ondansetron 4 MG Tablet PO (01:30)
[2020-03-26] MEDS: HYDROcodone-acetaminophen 5-325 mg Tablet 1 TAB PO (01:30)
[2020-03-26] MEDS: thyroid 60 mg Tablet 240 MG PO (02:35)
[2020-03-26 02:38] VITALS: BP 110/66; PULSE 91; RESP 14; O2SAT 92
== END 2020-03-26 02:38 | disposition home or self-care (01) ==
PROVIDERS: Emergency Provider Physician Assistant
DX: E03.5 Myxedema coma (principal); F17.200 Nicotine dependence, unspecified, uncomplicated; Z53.29 Procedure and treatment not carried out because of patient's decision for other reasons
CPT/HCPCS: 12345; 80053; 81001; 82550; 83605; 84439; 84443; 84481; 84484; 85025; 86140; 93005; 96374; 99283; Q0162